=== PATIENT | female | born 1990 | race Caucasian/White ===

== ENCOUNTER 2017-05-05 10:19 | Emergency (ER) | payer SELFPAY ==
[2017-05-05 11:14] LABS: APPEARANCE HAZY (CLEAR); BACTERIA MODERATE /hpf (NONE SEEN); BILIRUBIN NEGATIVE (NEGATIVE); COLOR YELLOW (YELLOW); GLUCOSE NEGATIVE (NEGATIVE); KETONE NEGATIVE (NEGATIVE); MUCUS <1+ /lpf (NONE SEEN); NITRITE NEGATIVE (NEGATIVE); PROTEIN NEGATIVE (NEGATIVE); RED CELLS - URINE >50 /hpf (0-5); UROBILINOGEN NORMAL (NORMAL); WHITE CELLS - URINE 0-5 /hpf (0-5)
== END 2017-05-05 12:29 | disposition home or self-care (01) ==
LOC: D.ER 10:19
PROVIDERS: Emergency Medicine
DX: R10.9 Unspecified abdominal pain (principal); N23 Unspecified renal colic; R31.9 Hematuria, unspecified; I10 Essential (primary) hypertension; F17.200 Nicotine dependence, unspecified, uncomplicated

== ENCOUNTER → 2018-03-19 14:17 | Outpatient (CLI) | payer BC ==
[~2018-03-19 14:17] MED LIST: FLOMAX0.4 MG PO; NAPROSYN500 MG PO; PRINZIDE 20/12.1 TA1; STERAPRED 5MG 125 MG PO; TOPAMAX50 MG PO
[2018-03-26 10:34] VITALS: BMI 29.6
== END | disposition home or self-care (01) ==
LOC: D.CT 14:17
DX: Z87.442 Personal history of urinary calculi (principal)

== ENCOUNTER 2018-03-26 09:35 | Day surgery (SDC) | payer BC ==
[2018-03-23 10:45] LABS: BASOPHILS 0.1 % (0-2); EOSINOPHILS 0.6 % (0-7); HEMATOCRIT 41.2 % (36.0-48.0); IMMATURE GRANULOCYTES 0.2 % (0-5); LYMPHOCYTES 22.2 % (15-50); MCH 29.6 pg (26.0-34.0); MCV 87.1 fL (80.0-100.0); MONOCYTES 10.2 % (2-11); NEUTROPHILS 66.7 % (40-80); PLATELET COUNT 345 10x3/uL (130-400); RBC 4.73 10x6/uL (4.00-5.40); RDW 13.4 % (11.5-14.5); WBC 8.6 10x3/uL (4.8-10.8)
[2018-03-23 10:54] LABS: CALC OSMOLALITY 278 mosm/kg (275-300); CALCIUM 9.4 mg/dL (8.5-10.1); CARBON DIOXIDE 28.5 mmol/L (21.0-32.0); CHLORIDE - SERUM 101 mmol/L (98-107); CREATININE - SERUM 0.9 mg/dL (0.6-1.3); GLUCOSE 92 mg/dL (74-106); POTASSIUM - SERUM 3.6 mmol/L (3.5-5.1); SODIUM 139 mmol/L (136-145); UREA NITROGEN 15 mg/dL (7-18); eGFR NON AFRICAN AMERICAN 79 mL/min (90-120)
[~2018-03-26] VITALS: Ht 162.6 cm; Wt 78.0 kg
--- NOTE | ~2018-03-26 | OP ---
PATIENT NAME: RAYO DOSS MEDICAL RECORD: [id number] :88 LOCATION:D.OPS ADMISSION DATE: SURGEON: ZEYAD GAY MD DATE OF OPERATION: 03/26/2018 PREOPERATIVE DIAGNOSIS: Pelvic mass. POSTOPERATIVE DIAGNOSES: 1. Bilateral endometriomas. 2. Active endometriosis. 3. Pelvic adhesions. PROCEDURES PERFORMED: 1. Diagnostic laparoscopy. 2. Bilateral cystectomies. SURGEON: Zeyad Gay MD ANESTHESIOLOGIST: Mitch Bruce MD CAFETERIA ASSOCIATE: Angel Nagy ANESTHETIC: General. FINDINGS: A 7 to 8 cm bilateral endometriomas. The right ovary was adhesed to the cul-de-sac. There were adhesions of the right uterus to the left sidewall. Active endometriosis apparent throughout the pelvis. SPECIMENS REMOVED: Right and left cyst islas, disposition to pathology, separate. ESTIMATED BLOOD LOSS: Less than or equal to 75 cc. FLUIDS: Lactated Ringer's 2200 cc. URINE OUTPUT: Cath prior to the procedure. COMPLICATIONS: None. DRAINS: None. INDICATION: The patient is a 27-year-old female with an incidental finding of pelvic mass, measuring approximately 10 cm, when being evaluated for urolithiasis. The patient is consented for diagnostic laparoscopy and any indicated procedure. DESCRIPTION OF PROCEDURE: After informed consent was assured, the patient was taken to the operating room, where anesthetic was obtained. The patient was prepped and draped after having her bladder drained. An incision was made at the umbilicus to accommodate a 5 mm bladeless trocar, which was inserted without difficulty and pneumoperitoneum developed. Accessory ports were now placed on right and left lower quadrants and in the midline. The midline port was a 10-12 port. Both right and left lower quadrant ports were 5 mm. Grasper was inserted in the hilum of the left ovary with cyst held fast. Using a monopolar hook, an incision was made, spilling the contents of the chocolate cyst. This was OPERATIVE REPORT [id number] RAYO DOSS suctioned and the pelvis was irrigated. After the contents of the cyst had been adequately irrigated and removed, a grasper was used to hold the capsule and a [place] grasper was used to grab the cyst wall and began to peel it from the capsule. At this point, this process goes on and the entire cyst wall was removed. This was removed from the patient's abdomen and sent to pathology. The capsule was inspected and adequate hemostasis was noted. Attention was now directed to the right side, where the right ovary was held in similar fashion; and using the hook, the cyst was opened and contents drained. The cyst was irrigated and all irrigant removed. The cyst wall was now removed in a similar fashion using Maryland's, peeling it from the capsule. Once this had been performed, the cyst capsules and ovaries were irrigated and inspected and found to be hemostatic. Interceed was now placed over the operative sites on both left and right ovaries. All irrigants been removed from the pelvis, the patient now has accessory trocars removed under direct visualization. The primary trocars were removed after release of maximum pneumoperitoneum. All sites were closed with subcuticular stitch and Dermabond applied. Sponge, lap, and needle counts correct times 2. TRANSINT:[id number] Voice Confirmation ID: [id number] DOCUMENT ID: [id number] ZEYAD GAY MD at 1431 CC: [id number] DICTATION DATE: 03/26/18 1637 GENERAL ENGINEERING TEACHER: 03/26/18 2340 [facility] 03/26/18 [facility] [address] [place] [address]
[2018-03-26 10:34] VITALS: BP 104/67; Ht 162.6 cm; Wt 78.0 kg
[2018-03-26 13:57] LABS: HCG URINE NEGATIVE (NEGATIVE)
== END 2018-03-26 19:50 | disposition home or self-care (01) ==
LOC: D.OPS 09:35 → D.PAN 12:00 → D.OPS 12:00
PROVIDERS: Anesthesiology; Obstetrics & Gynecology
DX: N80.1 Endometriosis of ovary (principal); N80.3 Endometriosis of pelvic peritoneum; N73.6 Female pelvic peritoneal adhesions (postinfective); Z01.812 Encounter for preprocedural laboratory examination

== ENCOUNTER 2018-11-28 11:45 | Inpatient (IN) | payer BC ==
[~2018-11-28] VITALS: Ht 160 cm; Wt 86.4 kg
[2018-12-14] MEDS ORDERED: LISINOPRIL-HCT1 EAC7 PO (12:33)
[2018-12-14] MEDS ORDERED: METOPROLOL TART25 MG PO (12:34)
[2018-12-14 13:22] LABS: BASOPHILS 0.2 % (0-2); EOSINOPHILS 3.8 % (0-7); HEMATOCRIT 38.4 % (36.0-48.0); HEMOGLOBIN 13.1 g/dL (12-16); IMMATURE GRANULOCYTES 0.2 % (0-5); LYMPHOCYTES 36.5 % (15-50); MCH 29.9 pg (26.0-34.0); MCHC 34.1 g/dL (31.0-37.0); MCV 87.7 fL (80.0-100.0); MEAN PLATELET VOLUME 8.8 fL (7.4-10.4); MONOCYTES 6.5 % (2-11); NEUTROPHILS 52.8 % (40-80); PLATELET COUNT 360 10x3/uL (130-400); RBC 4.38 10x6/uL (4.00-5.40); RDW 13.6 % (11.5-14.5); WBC 6.6 10x3/uL (4.8-10.8)
[2018-12-14 13:36] LABS: CALC OSMOLALITY 281 mosm/kg (275-300); CALCIUM 9.3 mg/dL (8.5-10.1); CARBON DIOXIDE 27.7 mmol/L (21.0-32.0); CHLORIDE - SERUM 106 mmol/L (98-107); CREATININE - SERUM 0.7 mg/dL (0.6-1.3); GLUCOSE 95 mg/dL (74-106); POTASSIUM - SERUM 4.3 mmol/L (3.5-5.1); SODIUM 142 mmol/L (136-145); UREA NITROGEN 11 mg/dL (7-18); eGFR NON AFRICAN AMERICAN > 90 mL/min (90-120)
[2018-12-17] VITALS (15 sets, daily range): BP systolic 92–132; BP diastolic 52–85; Ht 160 cm; Wt 86.4 kg
[2018-12-17 06:45] LABS: HCG URINE NEGATIVE (NEGATIVE)
--- NOTE | 2018-12-17 11:26 | NUR ---
RECEIVED PT FROM VIA BED TO ROOM 1273. BED LOCKED AND PLACED IN LOW POSITION. PT AWAKE. VSS. HRRR WITHOUT AUDIBLE MURMUR. BBS CLEAR. BS TO UPPER QUADS HYPOACTIVE, LOWER QUADS ABSENT. ABDOMEN PALPATES SOFT. ABDOMINAL INCISION WITHOUT REDNESS, SWELLING OR DRAINGE NOTED. ICE PACK TO INCISION. NEG HOMANS' SIGN. PPP. SLIGHT NON-PITTING EDEMA NOTED TO FEET/ANKLES. SCDS ON BLE. PUMP ON. LEIVA TO GRAVITY DRAINING CLEAR, YELLOW URINE. PIV OF LR INFUSING TO LEFT FOREARM AT 150 ML/HR. SITE CLEAR. SL TO RIGHT HAND. SITE CLEAR. DILAUDID ENGINEER OF SYSTEM DEVELOPMENT STARTED ORDERED. PT INSTRUCTED ON MED AND USE OF BUTTON. DEMONSTRATES UNDERSTANDING. REGLAN 10 MG GIVEN SIVP OVER 3 MINUTES. PT INSTRUCTED ON MED. VERBALIZES UNDERSTANDING. PT ORIENTED TO ROOM, BED, AND CALL LIGHT. SR UP X2. CALL LIGHT IN REACH. FAMILY IN ROOM WITH PT.
--- NOTE | 2018-12-17 12:04 | NUR ---
PT LYING IN SEMI-BANKS'S POSITION. WAKES UPON VERBAL STIMULATION. DENIES C/O OR NEEDS. FAMILY AT BEDSIDE.
--- NOTE | 2018-12-17 13:35 | NUR ---
PT REPOSITIONS TO RIGHT SIDE IN BED. PROPPED WITH PILLOWS. DENIES NEEDS OR C/O.
--- NOTE | 2018-12-17 14:15 | NUR ---
DR GAY TO ROOM. VISITS WITH PT AND SO. ORDER RECEIVED FOR CLEAR LIQUID DIET.
--- NOTE | 2018-12-17 15:10 | NUR ---
PT LYING IN SEMI-BANKS'S POSITION. REQUESTS AND RECEIVES ICE WATER. FRESH ICE PACK TO INCISION. INCISION WITHOUT REDNESS, SWELLING OR DRAINAGE NOTED.
--- NOTE | 2018-12-17 17:01 | NUR ---
TORADOL 30 MG GIVEN SIVP OVER 2 MINUTES.
--- NOTE | 2018-12-17 18:11 | NUR ---
I/O COMPLETED. PT LYING IN SEMI-BANKS'S POSITION. STATES PAIN IMPROVED SINCE TORADOL. DENIES NEEDS OR C/O.
--- NOTE | 2018-12-17 19:44 | NUR ---
shift assessment completed, see flowsheet
--- NOTE | 2018-12-17 20:30 | NUR ---
NASAL CANNULA REMOVED AT THIS TIME. 02 SAT 99%. FRESH ICE WATER PROVIDED PER PT REQUEST. LINENS PROVIDED FOR PATIENTS SIGNIFICANT OTHER. NO FURTHER NEEDS IDENTIFIED. WILL CONTINUE TO MONITOR.
--- NOTE | 2018-12-17 21:30 | NUR ---
PT RESTING QUIETLY WITH EYES CLOSED, RESPIRATIONS EVEN AND NON LABORED O2 SAT 99%. SIGNIFICANT OTHER REMAINS AT BEDSIDE. NO NEEDS IDENTIFIED. WILL CONTINUE TO MONITOR.
--- NOTE | 2018-12-17 22:44 | NUR ---
PT RESTING QUIETLY WITH EYES CLOSED, NO RESPIRATORY DISTRESS NOTED, EASILY AROUSED TO VERBAL. TORADOL 30MG SLOW IVP PER MD ORDERS AT THIS TIME. PT DENIES NEEDS, WILL CONTINUE TO MONITOR.
--- NOTE | 2018-12-17 23:48 | NUR ---
NASAL CANNULA REPLACED AT THIS TIME WOTH OXYGEN AT 1L/MIN DUE TO SEVERAL DROPS IN PULSE OX. REGLAN ADMINISTERED PER MD ORDERS, SEE EMAR. PT DENIES NEEDS AT TH IS TIME, WILL CONTINUE TO MONITOR.
--- NOTE | 2018-12-18 02:15 | NUR ---
PT RESTING QUIETLY WITH EYES CLOSED, EASILY AROUSED TO VERBAL. DENIES PAIN. PRODUCE DEPARTMENT SUPERVISOR CARTRIDGE CHANGED, WASTE WITNESSED BY TONI GARCIA. NEW BAG OF LR HUNG AT 150ML/HR PER MD ORDERS. OXYGEN CHANGED TO 2L/MIN
--- NOTE | 2018-12-18 04:46 | NUR ---
PT RESTING QUIETLY WITH EYES CLOSED, EASILY AROUSED TO VERBAL STIMULI. NO NEEDS IDENTIFIED. TORADOL 30MG SLOW IVP ADMINISTERED PER MD ORDERS. WILL CONTINUE TO MONITOR.
--- NOTE | 2018-12-18 06:03 | NUR ---
PT RESTING QUIETLY WITH EYES CLOSED, EASILY AROUSED TO VERBAL STIMULI. LEIVA CATHETER EMPTIED OF 1000ML CLEAR YELLOW URINE, AND FRESH ICE WATER PROVIDED. LAB AT BEDSIDE FOR AM BLOOD DRAW. PT DENIES ANY PAIN OR NEEDS AT THIS TIME, SOFTWARE ANALYST REMAINS IN PLACE. REGLAN GIVEN IVP,SEE EMAR. WILL CONTINUE TO MONITOR.
[2018-12-18 06:50] LABS: BASOPHILS 0.1 % (0-2); EOSINOPHILS 1.3 % (0-7); HEMATOCRIT 30.2 % (36.0-48.0); IMMATURE GRANULOCYTES 0.1 % (0-5); LYMPHOCYTES 26.8 % (15-50); MCH 29.2 pg (26.0-34.0); MCHC 33.1 g/dL (31.0-37.0); MEAN PLATELET VOLUME 8.8 fL (7.4-10.4); MONOCYTES 7.7 % (2-11); PLATELET COUNT 328 10x3/uL (130-400); RBC 3.43 10x6/uL (4.00-5.40); RDW 13.9 % (11.5-14.5); WBC 7.6 10x3/uL (4.8-10.8)
[2018-12-18 07:07] LABS: CALC OSMOLALITY 284 mosm/kg (275-300); CALCIUM 8.5 mg/dL (8.5-10.1); CARBON DIOXIDE 27.7 mmol/L (21.0-32.0); CHLORIDE - SERUM 108 mmol/L (98-107); CREATININE - SERUM 0.7 mg/dL (0.6-1.3); GLUCOSE 91 mg/dL (74-106); POTASSIUM - SERUM 3.5 mmol/L (3.5-5.1); SODIUM 144 mmol/L (136-145); UREA NITROGEN 7 mg/dL (7-18); eGFR NON AFRICAN AMERICAN > 90 mL/min (90-120)
--- NOTE | 2018-12-18 07:20 | NUR ---
RECIEVED REPORT FROM 7P SHIFT TO INCLUDE THAT O2 SAT STAYS BETWEEN 91% AND 93% WHILE PT IS SLEEPING AND ON O2 @ 2L/MIN VIA NC, BUT THAT O2 SAT INCREASES TO 96% UPON WAKING PT. UPON ENTERING ROOM, PT IN HIGH FOWLERS POSIITON WITH AT BEDSIDE. INCENTIVE SPIROMETER NOTED AT BEDSIDE, PT REPORTS KNOWLEDGE OF USE AND STATES THAT SHE WILL USE AFTER BREAKFAST. PHYSICAL ASSESSMENT COMPLETE. LR INFUSING VIA PUMP AT 150ML/HR; INSOLE DOUBLER DILAUDID IN PLACE; BOTH INFUSING TO IV IN LEFT HAND. SITE C/D/I. REDDENED AREAS NOTED ON LEFT HAND AND LEFT UPPER ARM. PT REPORTS THAT THESE ARE OLD AND BEING FOLLOWED BY A IN CLASSROOM TUTOR. SALINE LOCK NOTED IN RIGHT HAND. SITE C/D/I. LUNGS CLEAR IN ALL MARTINEZ, O2 SAT 95% ON 2L/MIN VIA NC. BOWEL SOUNDS ACTIVE X 4. LOWER TRANSVERSE INCISION NOTED WITH DERMABOND. BRUISING NOTED AROUND INCISION, NO REDNESS OR SWELLING NOTED. LEIVA IN PLACE DRAINING TO GRAVITY. 200MLS CLEAR YELLOW URINE NOTED IN COLLECTION CONTAINER. SCDS IN PLACE, CONNECTED TO PUMP, AND TURNED ON. NON-PITTING EDEMA NOTED IN LOWER EXTREMETIES BILATERALLY. PT RATES PAIN 1/10 AND DENIES NEEDS AT THIS TIME. PT STATES, "I AM JUST READY TO GET UP AND MOVING."
[2018-12-18 07:21] VITALS: BP 129/60
--- NOTE | 2018-12-18 08:45 | NUR ---
PT IN HIGH FOWLERS POSITION. DISCUSSED POC WITH PT AND . BOTH VERBALIZE UNDERSTANDING AND AGREEMENT. SL IN RIGHT HAND DCD WITH TIP INTACT. LR AND MATERIAL CHECKER DCD. IV IN LEFT FOREARM SALINE LOCKED WITH J-LOOP. LEIVA CATH DCD WITH CATH TIP INTACT AFTER REMOVING FLUID FROM BULB. 300MLS NOTED IN CONTAINER. SCDS REMOVED AT THIS TIME. PT ASSISTED UP TO SIT ON SIDE OF THE BED. PT REMOVES O2 NC AT THIS TIME. O2 SAT REMAINS AT 95% ON RA. PT AMBULATES TO RESTROOM WITH MINIMAL ASSISTANCE. CHUX CHANGED. PT CANNOT VOID BUT CHOOSES TO SIT ON COUCH AT THIS TIME. PT RATES PAIN 1/10 AND DENIES NEED FOR MEDICATION. O2 SAT 99% AFTER AMBULATION. REMAINS AT PT SIDE.
--- NOTE | 2018-12-18 09:49 | NUR ---
PT IN HIGH FOWLERS POSITION IN BED. PT RATES PAIN 4/10 AT INCISION SITE AND DESCRIBES BURNING. PERCOCET 5/325MG GIVEN PO. FRESH ICE WATER PROVIDED. PT DENIES FURTHER NEEDS AT THIS TIME.
--- NOTE | 2018-12-18 10:20 | NUR ---
PT REMAINS IN HIGH FOWLERS POSITION AND RATES PAIN 3/10 AND DENIES FURTHER NEEDS.
--- NOTE | 2018-12-18 11:20 | NUR ---
PT IN LEFT LATERAL POSIITON. PT REPORTS VOIDING. 30MLS OF CLEAR YELLOW URINE NOTED IN [place] HAT. PT CONTINUES TO RATE PAIN 3/10 AND DENIES FURTHER NEEDS.
[2018-12-18 13:37] VITALS: BP 123/67
--- NOTE | 2018-12-18 13:37 | NUR ---
PT IN SEMI FOWLERS POSITION. PT RATING PAIN 5/10 AND REQUESTS PAIN MEDICATION. PT REPORTS PASSING FLATUS.
--- NOTE | 2018-12-18 13:42 | NUR ---
PERCOCET 10/325MG GIVEN PO FOR PT PAIN RATING OF 5/10. IV IN LEFT FA FLUSHED WITH 10MLS NS, SWAB CAP REPLACED. PT CONTINUES TO AMBULATE IN ROOM AND DENIES FURTHER NEEDS AT THIS TIME.
--- NOTE | 2018-12-18 16:15 | NUR ---
PT IN SUPINE POSITION RESTING WITH EYES CLOSED. RESP. EVEN AND UNLABORED.
--- NOTE | 2018-12-18 17:41 | NUR ---
PT IN SEMI FOWLERS POSITION. FAMILY AT BEDSIDE VISITING. PT RATES PAIN 6/10 AND REQUESTS PAIN MEDICATION. PERCOCET 10/325MG GIVEN PO. PT DENIES DESIRE TO SHOWER AT THIS TIME AND STATES, "I JUST WANT TO DO IT LATER". PT DID NOT EAT REGULAR DIET TRAY AND STATES THAT SOMEONE IS BRINGING HER FOOD FROM HOME THAT SHE WILL EAT. PT DENIES FURTHER NEEDS AT THIS TIME.
[2018-12-18 17:43] VITALS: BP 141/82
--- NOTE | 2018-12-18 18:55 | NUR ---
REPORT RECEIVED FROM JO MUÑOZ
--- NOTE | 2018-12-18 19:20 | NUR ---
PT IN BED, ASSESSMENT COMPLETED, SEE FLOWSHEET. STATED PAIN WAS 3/10 TO ABD AREA. STATED PAIN WAS AT TOLERABLE LEVEL. INCISION TO ABOUT AREA. SITE INTACT WITH NO DRAINAGE NOTED. VSS. DENIES ANY NEEDS AT THIS TIME. CL IN REACH. SL UP TIMES 2. WILL MONITOR
[2018-12-18 19:41] VITALS: BP 126/59
--- NOTE | 2018-12-18 21:00 | NUR ---
MEDS GIVEN PER ORDER. REQUESTING SHOWER AT THIS TIME
--- NOTE | 2018-12-18 21:26 | NUR ---
SHOWER TAKEN PER PT. BED CHANGED. PT BACK IN BED. DENIES ANY OTHER NEEDS
--- NOTE | 2018-12-18 21:38 | NUR ---
STATED IN PAIN TO ABD 10/17. MEDICATION GIVEN PER ORDER. SEE EMAR
--- NOTE | 2018-12-18 22:13 | NUR ---
STATED PAIN WAS BETTER. /10. CL IN REACH. DENIES ANY OTHER NEEDS. SR UP X2
--- NOTE | 2018-12-18 23:36 | NUR ---
RESTING IN BED WATCHING TV, CL IN REACH. SR UP X2. DENIES NEEDS. WILL MONITOR
--- NOTE | 2018-12-19 01:32 | NUR ---
REQUESTING PAIN MEDICATION. STATED PAIN WAS 3/10 TO ABD. MED GIVEN PER ORDER. SEE EMAR. CL IN REACH. SR UP X2. WILL MONITOR
--- NOTE | 2018-12-19 02:17 | NUR ---
RESTING WITH EYES CLOSED. NO DISTRESS NOTED. CL IN REACH. SR UP X2. WILL MONITOR
[2018-12-19 02:48] VITALS: BP 126/58
--- NOTE | 2018-12-19 04:20 | NUR ---
PT RESTING QUIETLY WITH EYES CLOSED, EASILY AROUSED TO VERBAL STIMULI. PT DENIES PAIN OR NEEDS AT THIS TIME. WILL CONTINUE TO MONITOR.
--- NOTE | 2018-12-19 05:59 | NUR ---
PT UP TO BATHROOM WITH STEADY GAIT, VOIDED WITHOUT DIFFICULTY AND AMBULATED BACK TO BED. PERCOCET 10/325MG PO ADMINISTERED PER PT REQUEST AND MD ORDERS FOR PAIN 01/16. SEE EMAR. APPLE JUICE PROVIDED, PT DENIES OTHER NEEDS. WILL CONTINUE TO MONITOR.
[2018-12-19 08:10] VITALS: BP 123/59
--- NOTE | 2018-12-19 08:10 | NUR ---
ASSESSMENT DONE. VERBAL RESPONSES APPRO TO QUESTIONS. DENIES NEEDS. UP AND ABOUT AT WILL. STATES IS VOIDING WITHOUT PROBLEMS. STATES IS PASSING GAS.
--- NOTE | 2018-12-19 10:12 | NUR ---
requesting pain medication. co pain at incision- rates pain a 6 on scale of 0-10.
--- NOTE | 2018-12-19 10:56 | NUR ---
dr young calls unit. asking if pt wants to go home at noon or afternoon. informed that pt and sign other are ready to go home jeet. states he will come over and place discharge orders.
--- NOTE | 2018-12-19 11:05 | NUR ---
DR GAY HERE TO SEE PT.
--- NOTE | 2018-12-19 11:24 | NUR ---
SALINE LOCK REMOVED WITH CATH TIP INTACT. BANDAIDE APPLIED. PRESCRIPTIONS X 4 GIVEN TO SIGN OTHER TO TAKE TO PHARMACY NOW. COPY OF THEM MADE AND PLACED IN CHART.
[2018-12-19] MEDS ORDERED: NEURONTIN 300300 MG PO (11:55)
[2018-12-19] MEDS ORDERED: PERCOCET 7.5/321 TAB PO (11:55)
[2018-12-19] MEDS ORDERED: MOBIC7.5 MG PO (11:56)
[2018-12-19] MEDS ORDERED: ESTRACE2 MG PO (11:57)
--- NOTE | 2018-12-19 12:20 | NUR ---
DISCHARGE INST VERBAL AND WRITTEN GIVEN. PT MED REC GIVEN ALONG WITH DRUG DATA INFO SHEETS. PFW POST OP HYSTERECTOMY INST GIVEN. DISCHARGE INST POST OP HYST GIVEN. PT HEALTH SUMMARY GIVEN. PT DENIES QUESTIONS- STATES SHE IS READY FOR DISCHARGE.
--- NOTE | 2018-12-19 12:32 | NUR ---
TO AUTO VIA W/C WITH SIGN OTHER.
== END 2018-12-19 12:32 | disposition home or self-care (01) | DRG 743 ==
LOC: D.SDCHOLD 12-17 05:30 → D.LD 12-17 11:24
PROVIDERS: Anesthesiology; ADMIT Obstetrics & Gynecology; ATTEND Obstetrics & Gynecology
PROC: 0UT70ZZ Resection of Bilateral Fallopian Tubes, Open Approach (ICD-10-PCS; 2018-12-17)
PROC: 0UT90ZZ Resection of Uterus, Open Approach (ICD-10-PCS; principal; 2018-12-17 07:30)
PROC: 0UT20ZZ Resection of Bilateral Ovaries, Open Approach (ICD-10-PCS; 2018-12-17 07:30)
DX: N83.9 Noninflammatory disorder of ovary, fallopian tube and broad ligament, unspecified (principal); N80.9 Endometriosis, unspecified